=== PATIENT | male | born 1970 | race Caucasian/White ===

== ENCOUNTER 2019-12-09 02:25 | Emergency (ER) | payer MEDICARE, MEDICAID ==
[~2019-12-09] VITALS: Ht 175.3 cm; Wt 65.9 kg
[2019-12-09 02:31] VITALS: BP 169/103
== END 2019-12-09 02:55 | disposition home or self-care (01) ==
LOC: ED 02:40
DX: S60.861A Insect bite (nonvenomous) of right wrist, initial encounter (principal); S10.86XA Insect bite of other specified part of neck, initial encounter; Z72.9 Problem related to lifestyle, unspecified; R00.0 Tachycardia, unspecified; F17.200 Nicotine dependence, unspecified, uncomplicated; W57.XXXA Bitten or stung by nonvenomous insect and other nonvenomous arthropods, initial encounter; Y93.89 Activity, other specified; Y92.89 Other specified places as the place of occurrence of the external cause; Y99.8 Other external cause status
CPT/HCPCS: 99281